=== PATIENT | male | born 1985 | race Hispanic/Latino ===

== ENCOUNTER 2021-11-07 19:28 | Emergency (ER) | payer SELFPAY ==
[2021-11-07 19:35] VITALS: BP 121/90
[2021-11-07] MEDS ORDERED: FAMOTIDINE 20 MG/2 ML INJ IV ONE ×2 (19:40→20:40)
[2021-11-07] MEDS ORDERED: diphenhydrAMINE 50 MG/ML VIAL IV ONE ×2 (19:40→20:39)
[2021-11-07] MEDS ORDERED: dexAMETHasone 20 MG/5 ML VIAL IV ONE (19:41)
--- NOTE | 2021-11-07 19:42 | Event Note ---
ED Screening Note Date of service: 11/07/21 Time: 19:41 ED Screening Note: Logic reaction to amoxicilli x 1 hour Diffuse itching and rash with swelling to the face Patient states throat feels like his swelling somewhat No shortness of breath No tongue swelling is noted Took Benadryl 1 hour ago This initial assessment/diagnostic orders/clinical plan/treatment(s) is/are subject to change based on patients health status, clinical progression and re- assessment by fellow clinical providers in the ED. Further treatment and workup at subsequent clinical providers discretion. Patient/guardian urged not to elope from the ED as their condition may be serious if not clinically assessed and managed. Initial orders include: Decadron, Benadryl, Pepcid ordered
[2021-11-07] MEDS ORDERED: KETOROLAC 30 MG/1 ML INJ IV ONE (20:39)
[2021-11-07] MEDS ORDERED: methylPREDNISolone Sod Succinate 125 MG/2 ML INJ IV ONE (20:40)
--- NOTE | 2021-11-07 20:57 | Emergency Department Report ---
ED Allergic Reaction HPI - General Chief complaint: Allergic Reaction Stated complaint: ALLERGIC REACTION Source: patient Mode of arrival: Ambulatory Limitations: No Limitations - History of Present Illness Initial Comments: Patient is a 36-year-old male with no past medical history presents to the ED with complaint of acute onset persistent diffuse itchy erythematous maculopap ular rashes with mild lip fullness and swelling for the last 6 hours. Patient states that the symptoms developed after he took amoxicillin for a recently diagnosed dental abscess. Patient states that this was the first time he was taking amoxicillin in a long time. Patient states that the itchy rashes have a burning sensation and pain. Patient denies dizziness, syncope, nausea and vomiting, swollen tongue, dysphagia, dysphonia, chest pain or shortness of breath, fever and chills, headache, diarrhea or abdominal pain. MD Complaint: allergic reaction, hives, facial swelling, other (dental abscess) -: Sudden, hour(s) (6) Exposure: medication Symptoms: rash, itching, lip swelling. denies: difficulty swallowing, difficulty breathing, orolingual swelling, hoarseness, syncopy, dizziness, nausea, vomiting, other, abdominal pain Severity: moderate Treatment Prior to Arrival: none Previous Allergy History: none - Related Data Previous Rx's Medication Instructions Recorded Last Taken Type Clindamycin [Clindamycin CAP] 300 mg PO Q8H #30 cap 11/07/21 Unknown Rx Famotidine [Pepcid] 20 mg PO BID #30 tablet 11/07/21 Unknown Rx Ketorolac [Toradol] 10 mg PO Q8H PRN #20 tab 11/07/21 Unknown Rx diphenhydrAMINE [Benadryl CAP] 25 mg PO Q6HR PRN #40 capsule 11/07/21 Unknown Rx predniSONE [Deltasone] 60 mg PO QDAY #15 tab 11/07/21 Unknown Rx Allergies Allergy/AdvReac Type Severity Reaction Status Date / Time venom-honey bee Allergy Anaphylaxis Verified 11/07/21 19:34 ED Review of Systems ROS: Stated complaint: ALLERGIC REACTION Other details as noted in HPI Constitutional: denies: chills, fever Eyes: denies: eye pain, eye discharge, vision change ENT: dental pain (Bilateral mandibular premolar molar toothache), other (Mild lower lip fullness). denies: ear pain, throat pain Respiratory: denies: cough, shortness of breath, wheezing Cardiovascular: denies: chest pain, palpitations Endocrine: no symptoms reported Gastrointestinal: denies: abdominal pain, nausea, vomiting, diarrhea Genitourinary: denies: urgency, dysuria Musculoskeletal: denies: back pain, joint swelling, arthralgia Skin: rash (Diffuse itchy erythematous maculopapular urticarial rashes), change in color, pruritus. denies: lesions Neurological: denies: headache, weakness, paresthesias Psychiatric: denies: anxiety, depression Hematological/Lymphatic: denies: easy bleeding, easy bruising ED Past Medical Hx - Medications Home Medications: Home Medications Medication Instructions Recorded Confirmed Last Taken Type Clindamycin [Clindamycin CAP] 300 mg PO Q8H #30 cap 11/07/21 Unknown Rx Famotidine [Pepcid] 20 mg PO BID #30 tablet 11/07/21 Unknown Rx Ketorolac [Toradol] 10 mg PO Q8H PRN #20 tab 11/07/21 Unknown Rx diphenhydrAMINE [Benadryl CAP] 25 mg PO Q6HR PRN #40 capsule 11/07/21 Unknown Rx predniSONE [Deltasone] 60 mg PO QDAY #15 tab 11/07/21 Unknown Rx ED Physical Exam - General Limitations: No Limitations General appearance: alert, in no apparent distress - Head Head exam: Present: atraumatic, normocephalic, normal inspection - Eye Eye exam: Present: normal appearance, PERRL, EOMI Pupils: Present: normal accommodation - ENT ENT exam: Present: mucous membranes moist, TM's normal bilaterally, normal external ear exam, other (Palpable bilateral mandibular premolar and molar teeth tenderness) - Neck Neck exam: Present: normal inspection, full ROM. Absent: tenderness - Respiratory Respiratory exam: Present: normal lung sounds bilaterally. Absent: respiratory distress, wheezes, rales, rhonchi, chest wall tenderness, accessory muscle use, decreased breath sounds, prolonged expiratory - Cardiovascular Cardiovascular Exam: Present: normal rhythm, tachycardia, normal heart sounds. Absent: systolic murmur, diastolic murmur, rubs, gallop - GI/Abdominal GI/Abdominal exam: Present: soft, normal bowel sounds. Absent: distended, tenderness, guarding, rebound, hyperactive bowel sounds, hypoactive bowel sounds, mass - Extremities Exam Extremities exam: Present: normal inspection, full ROM, normal capillary refill - Back Exam Back exam: Present: normal inspection, full ROM. Absent: tenderness, CVA tenderness (R), CVA tenderness (L), muscle spasm, paraspinal tenderness, vertebral tenderness - Neurological Exam Neurological exam: Present: alert, oriented X3, CN II-XII intact, normal gait, reflexes normal - Psychiatric Psychiatric exam: Present: normal affect, normal mood - Skin Skin exam: Present: warm, dry, intact, rash (Mild diffuse erythematous maculopapular urticarial rashes), erythema, urticaria. Absent: normal color ED Course Vital Signs 11/07/21 19:32 Temperature 97.9 F Pulse Rate 111 H Respiratory 18 Rate Blood Pressure 121/90 O2 Sat by Pulse 96 Oximetry ED Medical Decision Making - Medical Decision Making This is a 36-year-old male with no past medical history presents to the ED with complaint of acute onset persistent diffuse itchy erythematous maculopapular rashes with mild lip fullness and swelling for the last 6 hours. Patient states that the symptoms developed after he took amoxicillin for a recently diagnosed dental abscess. Patient states that this was the first time he was taking amoxicillin in a long time. Patient states that the itchy rashes have a burning sensation and pain. In the ED, patient is alert and oriented x3 and is not in any distress. Patient is however tachycardic and afebrile in triage. Patient was treated for acute allergic reaction with Benadryl, Solu-Medrol and Pepcid, and also given pain medications. On reevaluation, patient felt better, itching and hives resolved and patient was discharged home on medications for pain, also given new oral antibiotics for dental abscess replacing the previously prescribed amoxicillin, and also given oral steroid prescriptions. Patient was advised to follow-up with his primary care physician or dentist in 7 to 10 days for reevaluation or return to the ED immediately if symptoms get worse. - Differential Diagnosis Allergic reaction; hives; urticaria; dental abscess; dental caries Critical care attestation.: If time is entered above; I have spent that time in minutes in the direct care of this critically ill patient, excluding procedure time. ED Disposition Clinical Impression: Acute urticaria, Itching with irritation, Dental abscess Acute allergic reaction Qualifiers: Encounter type: initial encounter Qualified Code(s): T78.40XA - Allergy, unspecified, initial encounter Disposition: HOME / SELF CARE / HOMELESS Is pt being admited?: No Does the pt Need Aspirin: No Condition: Stable Instructions: Allergies, Adult, [id number], Dental Abscess, [id number], Rash, Adult, [id number], Hives, [id number] Additional Instructions: Take medication with food, drink plenty of fluids and follow-up with your dentist or primary care physician in 7 to 10 days for reevaluation. Return to the ED immediately if symptoms get worse Prescriptions: diphenhydrAMINE [Benadryl CAP] 25 mg PO Q6HR PRN #40 capsule PRN Reason: Itching Clindamycin [Clindamycin CAP] 300 mg PO Q8H #30 cap predniSONE [Deltasone] 60 mg PO QDAY #15 tab Famotidine [Pepcid] 20 mg PO BID #30 tablet Ketorolac [Toradol] 10 mg PO Q8H PRN #20 tab PRN Reason: Pain Referrals: [facility] [Provider Group] - 3-5 Days [facility] [Outside] - 3-5 Days Time of Disposition: 20:58 Print Language: NAURUAN
== END 2021-11-07 22:20 | disposition home or self-care (01) ==
LOC: ED 19:28
DX: T78.40XA Allergy, unspecified, initial encounter (principal); L50.9 Urticaria, unspecified; L29.9 Pruritus, unspecified; K04.7 Periapical abscess without sinus; Z79.899 Other long term (current) drug therapy; X58.XXXA Exposure to other specified factors, initial encounter
CPT/HCPCS: 96374; 96375; 96376; 99282; J1100; J1200; J1885; J2930; J3490